=== PATIENT | female | born 1955 | race African-American/Black ===

== ENCOUNTER 2018-09-02 11:23 | Inpatient (IN) | payer OTHER ==
[~2018-09-02] VITALS: Ht 167.6 cm; Wt 51.3 kg
[2018-09-02] MEDS ORDERED: Ipratropium 0.02% Inh Soln 2.5ml UD HHN ONE (11:45)
[2018-09-02] MEDS ORDERED: Albuterol ud Inhalation HHN ONE (11:45)
[2018-09-02] MEDS ORDERED: Morphine Sulfate 4mg/ml Inj (IV/IM USE ONLY) IVP ONE (11:45)
--- NOTE | 2018-09-02 12:04 | NUR ---
ED Nurse Note: CN attemtpting to gain IV access and blood for labs
[2018-09-02 12:26] LABS: HEMATOCRIT 37.8 % (37.0-47.0); HEMOGLOBIN 12.3 G/DL (12.0-16.0); MEAN CORPUSCULAR VOLUME 93 FL (80-99); PLATELET COUNT 415 K/UL (150-450); RED BLOOD COUNT 4.07 M/UL (4.20-5.40); RED CELL DISTRIBUTION WIDTH 18.4 % (11.6-14.8)
[2018-09-02 12:29] LABS: WHITE BLOOD COUNT 34.8 K/UL (4.8-10.8)
--- NOTE | 2018-09-02 12:42 | NUR ---
ED Nurse Note: unable to collect urine at this time, per patient, she is so dehydrated to produce urine. pt receiving bolus, will try later. daughter at bedside
[2018-09-02] MEDS ORDERED: Isovue-370 150ml vial INJ PRN (13:00)
[2018-09-02] MEDS ORDERED: Piperacillin/Tazobactam 3.375 GM in NS 110 ML IVPB ONE (13:00)
[2018-09-02 13:22] LABS: ANION GAP 17 mmol/L (5-15); BLOOD UREA NITROGEN 18 mg/dL (7-18); CARBON DIOXIDE 23 MMOL/L (21-32); CHLORIDE 95 MMOL/L (98-107); CREATININE 1.5 MG/DL (0.55-1.30); POTASSIUM 4.6 MMOL/L (3.5-5.1); SODIUM 135 MMOL/L (136-145)
[2018-09-02 13:32] LABS: ALANINE AMINOTRANSFERASE 20 U/L (12-78); ALBUMIN 3.7 G/DL (3.4-5.0); ALBUMIN/GLOBULIN RATIO 0.6 (1.0-2.7); ALKALINE PHOSPHATASE 101 U/L (46-116); ASPARTATE AMINO TRANSFERASE 25 U/L (15-37); CREATINE KINASE 78 U/L (26-308)
[2018-09-02 14:07] VITALS: BP 154/88
--- NOTE | 2018-09-02 14:10 | NUR ---
ED Nurse Note: patient signed consent form the ct chest w/ contrast patient verbalized understanding, daughter at bedside
--- NOTE | 2018-09-02 14:18 | NUR ---
ED Nurse Note: patient went down to ct chest
--- NOTE | 2018-09-02 14:22 | Emergency Room Report ---
History of Present Illness General Chief Complaint: Chest Pain Source: Patient Present Illness HPI Patient presents with shortness of breath and chest pain which has been worsening over the last 2-3 days. She also feels weak. People around her are ill at this time. She's also receiving chemotherapy for lung cancer. Pain rated 9/10, pressure and somewhat pleuritic. Denies fever or chills. Recent weight loss with poor appetite. She has generalized weakness. No NVD, dysuria, abdominal pain, calf pain, edema, headache, rashes. Denies depression to me, though sad at of Jade. Apparently the cancer involves her R lung. Allergies: Coded Allergies: No Known Allergies (Unverified , 09/02/18) Patient History Past Medical History: see triage record Past Surgical History: hysterectomy Social History: Denies: smoking - prior, drug use - prior Social History Narrative at home with daughter - Jade Now: No : 3 Para: 3 Reviewed Nursing Documentation: PMH: Agreed; PSxH: Agreed Nursing Documentation-PMH Hx Cancer: Yes - Right lung Review of Systems All Other Systems: negative except mentioned in HPI Physical Exam Vital Signs Date Time Temp Pulse Resp B/P (MAP) Pulse Ox O2 Delivery O2 Flow Rate FiO2 09/02/18 11:34 98.6 154 34 154/88 92 Room Air 09/02/18 11:46 21 09/02/18 14:07 4.0 Sp02 EP Interpretation: reviewed, abnormal - interpreted as low by me General Appearance: no apparent distress, alert, GCS 15, thin, Chronically Ill Eyes: bilateral eye PERRL, bilateral eye conjunctivae pale ENT: moist mucus membranes Neck: supple Respiratory: decreased breath sounds, rales - L Cardiovascular #1: tachycardia Cardiovascular #2: 2+ radial (L) Gastrointestinal: normal inspection, non tender, decreased bowel sounds Genitourinary: no CVA tenderness Neurologic: alert, oriented x3, motor strength/tone normal, grossly normal Psychiatric: mood/affect normal Skin: normal color, no rash Medical Decision Making Diagnostic Impression: Primary Impression: Sepsis Qualified Codes: A41.9 - Sepsis, unspecified organism Additional Impressions: Pneumonia Qualified Codes: J18.1 - Lobar pneumonia, unspecified organism Lung cancer Qualified Codes: C34.91 - Malignant neoplasm of unspecified part of right bronchus or lung ER Course Patient with history of lung cancer presents with dyspnea and chest pain. Differential includes acute myocardial infarction, pulmonary embolus, pneumonia , pneumothorax, metastasis amongst others. She's fairly ill with tachycardia and hypoxia. Evaluation will be with EKG, chest x-ray, CT angiogram and labs. These will include blood cultures and lactate. The patient will receive IV hydration and even though she is afebrile at this time most likely will need antibiotics. In addition she'll be treated for pain. EKG with ST and pulm pattern. CXR with LLL infiltrate. WBC elevated. Lactic acid elevated. Mild renal insufficiency. Influenza negative. Still tachycardic after bolus. Pain greatly improved. No PE. Repeat bolus and antibiotics infusing. Sepsis re-evaluation: Capillary fill good, not hypotensive, mentation good. Lactic acid improving. Discussed with Dr. Escoto and admit telemetry. Laboratory Tests Test 09/02/18 12:00 09/02/18 12:15 09/02/18 15:40 09/02/18 16:00 White Blood Count 34.8 K/UL (4.8-10.8) *H Red Blood Count 4.07 M/UL (4.20-5.40) L Hemoglobin 12.3 G/DL (12.0-16.0) Hematocrit 37.8 % (37.0-47.0) Mean Corpuscular Volume 93 FL (80-99) Mean Corpuscular Hemoglobin 30.2 PG (27.0-31.0) Mean Corpuscular Hemoglobin Concent 32.5 G/DL (32.0-36.0) Red Cell Distribution Width 18.4 % (11.6-14.8) H Platelet Count 415 K/UL (150-450) Mean Platelet Volume 5.5 FL (6.5-10.1) L Neutrophils (%) (Auto) % (45.0-75.0) Lymphocytes (%) (Auto) % (20.0-45.0) Monocytes (%) (Auto) % (1.0-10.0) Eosinophils (%) (Auto) % (0.0-3.0) Basophils (%) (Auto) % (0.0-2.0) Differential Total Cells Counted 100 Neutrophils % (Manual) 90 % (45-75) H Lymphocytes % (Manual) 2 % (20-45) L Monocytes % (Manual) 2 % (1-10) Eosinophils % (Manual) 0 % (0-3) Basophils % (Manual) 0 % (0-2) Band Neutrophils 6 % (0-8) Platelet Estimate Adequate Platelet Morphology Normal Anisocytosis 1+ Prothrombin Time 10.8 SEC (9.30-11.50) Prothrombin Time INR 1.0 (0.9-1.1) PTT 33 SEC (23-33) Sodium Level 135 MMOL/L (136-145) L Potassium Level 4.6 MMOL/L (3.5-5.1) Chloride Level 95 MMOL/L (98-107) L Carbon Dioxide Level 23 MMOL/L (21-32) Anion Gap 17 mmol/L (5-15) H Blood Urea Nitrogen 18 mg/dL (7-18) Creatinine 1.5 MG/DL (0.55-1.30) H Estimate Glomerular Filtration Rate 42.5 mL/min (>60) Glucose Level 131 MG/DL (74-106) H Calcium Level 11.0 MG/DL (8.5-10.1) H Total Bilirubin 1.0 MG/DL (0.2-1.0) Aspartate Amino Transferase (AST) 25 U/L (15-37) Alanine Aminotransferase (ALT) 20 U/L (12-78) Alkaline Phosphatase 101 U/L (46-116) Total Creatine Kinase 78 U/L (26-308) Troponin I 0.000 ng/mL (0.000-0.056) Pro-B-Type Natriuretic Peptide 1718 pg/mL (0-125) H Total Protein 10.2 G/DL (6.4-8.2) H Albumin 3.7 G/DL (3.4-5.0) Globulin 6.5 g/dL Albumin/Globulin Ratio 0.6 (1.0-2.7) L Lactic Acid Level 3.40 mmol/L (0.4-2.0) H 2.60 mmol/L (0.66-2.22) H Urine Color Yellow Urine Appearance Slightly cloudy Urine pH 5 (4.5-8.0) Urine Specific [place] 1.010 (1.005-1.035) Urine Protein 3+ (NEGATIVE) H Urine Glucose (UA) Negative (NEGATIVE) Urine Ketones 1+ (NEGATIVE) H Urine Blood 2+ (NEGATIVE) H Urine Nitrite Negative (NEGATIVE) Urine Bilirubin Negative (NEGATIVE) Urine Urobilinogen Normal MG/DL (0.0-1.0) Urine Leukocyte Esterase Negative (NEGATIVE) Urine RBC 2-4 /HPF (0 - 2) H Urine WBC 0 /HPF (0 - 2) Urine Squamous Epithelial Cells Few /LPF (NONE/OCC) Urine Amorphous Sediment Few /LPF (NONE) H Urine Bacteria Few /HPF (NONE) Test 09/02/18 22:00 Urine Legionella Antigen Pending Microbiology Date/Time Source Procedure Growth Status 09/02/18 11:58 Nasal Nares Influenza Types A,B Antigen (ANTHONY) - Final Complete EKG Diagnostic Results Rate: tachycardiac ST Segments: no acute changes - NSSTTW changes Rhythm Strip Diag. Results EP Interpretation: yes Rhythm: no PVC's, no ectopy Chest X-Ray Diagnostic Results Chest X-Ray Diagnostic Results : Chest X-Ray Ordered: Yes # of Views/Limited/Complete: 1 View Indication: Other EP Interpretation: Yes Interpretation: no pneumothorax, other - mass R upper lobe, LLL with infiltrate and effusion Impression: Other Electronically Signed by: Electronically signed by Harsha Bradford MD CT/MRI/US Diagnostic Results CT/MRI/US Diagnostic Results : Imaging Test Ordered: CTA chest Impression No pulmonary embolus or aortic dissection. Completely consolidated lingular segments of the left upper lobe suggesting pneumonia severe emphysema 5 x 3.1 cm calcified anterior mediastinal mass in similar thymoma or teratoma or treated lymphoma. Bronchogenic malignancy is felt to be less likely. Nodular right apical density with calcium felt to be scarring or else granulomatous disease. Mild thyromegaly. Multiple hypodense nodules largest in the right lobe measuring 1.8 cm Last Vital Signs Date Time Temp Pulse Resp B/P (MAP) Pulse Ox O2 Delivery O2 Flow Rate FiO2 09/02/18 20:00 130 20 99 Nasal Cannula 4.0 36 09/02/18 16:34 98.6 154/88 Status: improved Disposition: ADMITTED INPATIENT Condition: Serious Referrals: Kole DUNN,REFERRING (PCP) Harsha Bradford MD Sep 02, 2018 14:22
--- NOTE | 2018-09-02 15:00 | NUR ---
ED Nurse Note: atttemtped to get lactic acid reflex, unsuccessful
--- NOTE | 2018-09-02 15:25 | NUR ---
ED Nurse Note: called and spoke with [employer]orer [employer] to draw lactic acid reflex
--- NOTE | 2018-09-02 15:43 | NUR ---
ED Nurse Note: provided bedside commode for patient to collect u/a lactic acid drawn by director of cardiac cath lab
--- NOTE | 2018-09-02 16:00 | NUR ---
ED Nurse Note: urine obtained and sent down
[2018-09-02 16:18] LABS: APPEARANCE,URINE SLIGHTLY CLOUDY; BILIRUBIN, URINE NEGATIVE (NEGATIVE); GLUCOSE, URINE (UA) NEGATIVE (NEGATIVE); KETONES,URINE 1+ (NEGATIVE); LEUKOCYTE ESTERASE ,URINE NEGATIVE (NEGATIVE); NITRITE,URINE NEGATIVE (NEGATIVE); PH,URINE 5 (4.5-8.0); PROTEIN,URINE 3+ (NEGATIVE); UROBILINOGEN,URINE NORMAL MG/DL (0.0-1.0)
[2018-09-02 16:21] LABS: COLOR,URINE YELLOW
--- NOTE | 2018-09-02 16:25 | NUR ---
NURSE NOTES: Received patient from NALDO Yeh. Pt is short of breath on exertion and at rest. 4L via NC is currently being administered. Belongings list signed and in chart. Heart monitor applied to patient. Bed is in lowest position, side rails up X2, and call light is within reach. Will continue to monitor.
--- NOTE | 2018-09-02 16:27 | NUR ---
ED Nurse Note: patient transferred to ED 221-1 with all of her belongings. Endorsed that she needs 19 more minutes of levaquin to RN., report given to Corrina HITCHCOCK .
--- NOTE | 2018-09-02 17:49 | NUR ---
CASE MANAGEMENT: INITIAL REVIEW 09/02/2018 63 YO F PRESENTED TO OUR ED FROM HOME CC: CP PMHx: LUNG CA. SI:HYPOXIA T 98.6 HR 154 RR 34 B/P 154/88 SATS 92% ON RA WBC 34.8 NA 135 CL 95 CR 1.5 GLU 131 LACTIC ACID 3.4 CA 11 BNP 1718 IS: DUO NEB HHN X1 NS BOLUS X1 MORPHINE IV X1 ZOFRAN IV X1 NS BOLUS X1 PATIENT ADMITTED TO TELE 09/02/2018 @ 1413 DCP: PATIENT TO BE DISCHARGED TO HOME ONCE MEDICALLY CLEARED.
[2018-09-02] MEDS ORDERED: D5NS 1,000 ML IV SCH (18:00)
--- NOTE | 2018-09-02 19:15 | NUR ---
NURSE NOTES: Pt is voicing her concern about not receiving abx. Spoke to Dr. Davis who told me to contact Dr. Leatha Ahn. Left message with Dr. Ahn; awaiting response.
--- NOTE | 2018-09-02 19:30 | NUR ---
HAND-OFF: Report given to NALDO Tomlin. Plan of care endorsed.
--- NOTE | 2018-09-02 19:33 | NUR ---
NURSE NOTES: Report received from NALDO Jacome. Pt is lying comfortably in bed in semi-fowlers position with no signs of distress. Pt is A+Ox4 and denies pain/SOB. IV site is patent, intact, and running fluids at prescribed rate. Respirations are even and unlabored on 4 L NC. Bed is at lowest position, brakes engaged, siderailsx2, bed alarm on, and call light within reach. Pt is in stable condition at this time; will continue to monitor.
[2018-09-02] MEDS: Albuterol/Ipratropium 3ml neb HHN PRN (19:52)
[2018-09-02 20:00] VITALS: BP 123/74
--- NOTE | 2018-09-02 21:00 | History and Physical Report ---
DATE OF ADMISSION: 09/02/2018 HISTORY OF PRESENT ILLNESS: The patient came in with symptoms of chest pain made worse by deep inspiration for the past two days. The patient complains of shortness of breath, wheezing, and nonproductive cough for three days. The patient has a history of lung cancer diagnosed in April 2018, just finished her chemotherapy and radiation recently. The patient is being admitted for sepsis, pneumonia, leukocytosis, tachycardia, severe dehydration, and hypercalcemia. PAST MEDICAL HISTORY: Gastroesophageal reflux disease, lung cancer, and history of ovarian cancer versus benign. MEDICATIONS: The patient takes something for heartburn. ALLERGIES: None. SOCIAL HISTORY: The patient has history of smoking and history of drug abuse. No history of alcohol abuse. FAMILY HISTORY: Does have history of hypertension. REVIEW OF SYSTEMS: HEENT: headache. RESPIRATORY: Reports shortness of breath, wheezing, and nonproductive cough for three days. CARDIOVASCULAR: Reports chest pain made worse by deep inspiration for the past three days. Denies orthopnea. ABDOMEN: Denies abdominal pain. She has heartburn. EXTREMITIES: Denies pain in the lower extremities. CENTRAL NERVOUS SYSTEM: Denies changes in speech pattern. PHYSICAL EXAMINATION: VITAL SIGNS: Blood pressure 133/70 and heart rate is 110. HEENT: PERRLA. NECK: Supple. No lymphadenopathy. CHEST: Clear to auscultation. CARDIOVASCULAR: Tachycardic. GASTROINTESTINAL: Soft and nontender. No organomegaly. EXTREMITIES: No edema. Moves all four extremities. NEUROLOGIC: Sensory intact to light touch. Reflexes equal on both sides. LABORATORY DATA: WBC of 34,000. Calcium of 11. ASSESSMENT AND PLAN: Severe dehydration and hypercalcemia, could be due to cancer as well as most likely dehydration, sepsis, pneumonia most likely and lung cancer. I have asked Dr. Lovell, Dr. Grover, Dr. Momin, Dr. Keron Ahn, Dr. Lane to see the patient sepsis and pneumonia, dehydration, hypercalcemia, and recent lung cancer diagnosis. Monse Davis M.D. DR: ORION JOB#: [id number] CC:
[2018-09-02] MEDS: Piperacillin/Tazobactam 3.375 GM in NS 110 ML IVPB SCH (22:49)
--- NOTE | 2018-09-02 23:13 | NUR ---
NURSE NOTES: Left multiple messages with Dr. Davis regarding pt's chest pain. Dr. Davis said to contact deburrer, however there is no deburrer on the case. Let him know and awaiting response.
--- NOTE | 2018-09-02 23:18 | NUR ---
NURSE NOTES: Spoke with Dr. Davis who ordered morphine IVP. Left message with Dr. Fernandes regarding chest pain; awaiting response.
[2018-09-02] MEDS ORDERED: Morphine Sulfate 4mg/ml Inj (IV/IM USE ONLY) IVP PRN (23:45)
[2018-09-03] VITALS: BP 111/73
[2018-09-03 04:02] VITALS: BP 100/66
[2018-09-03] MEDS: Piperacillin/Tazobactam 3.375 GM in NS 110 ML IVPB SCH ×3 (06:30→21:49)
--- NOTE | 2018-09-03 07:10 | NUR ---
NURSE NOTES: I received the patient resting in bed. Patient alert and oriented x4. Patient verbalized that she was going to leave today. Patient does not display any signs of distress or SOB. Bed in the lowest position and call light within reach. I will continue to monitor the patient and implement care.
--- NOTE | 2018-09-03 07:32 | NUR ---
HAND-OFF: Report given to NALDO Villasenor. Pt is in stable condition; plan of care endorsed.
[2018-09-03 08:00] VITALS: BP 112/63
--- NOTE | 2018-09-03 08:42 | Diagnostic Imaging Report ---
Indication: Dyspnea Technique: One view of the chest Comparison: none Findings: Patient is rotated slightly to the right. Right paratracheal mass or adenopathy is demonstrated. There is opacification of the left lower hemithorax by a dense consolidation or mass. The pleural spaces are clear. The right lung is clear. There is some bullous emphysema in the left apex. Impression: Right paratracheal mass versus adenopathy. Number electronic medical record, patient has history of lung carcinoma so likely related to such Infiltrate in the left mid and lower lung. Recommend follow-up to resolution to exclude underlying mass lesion Evidence of bullous emphysema
[2018-09-03] MEDS: Docusate 100mg cap ORAL SCH ×4 (09:00→17:55)
--- NOTE | 2018-09-03 09:42 | Diagnostic Imaging Report ---
ndication: Chest pain for 3 days Technique: IV administration nonionic contrast. Spiral acquisitions obtained from the lung bases to the lung apices. Multiplanar and 3-D reconstructions were generated. Total dose length product 510.98 mGycm. CTDIvol(s) 15.93 mGy. Dose reduction achieved using automated exposure control Comparison: Chest radiograph earlier the same day Findings: No intraluminal filling defects or other findings to suggest acute pulmonary embolus demonstrated. Normal caliber pulmonary arteries. No evidence of thoracic aortic aneurysm or dissection. No evidence of right ventricular dilatation. There is a mass or conglomerate of masses in the right upper anterior mediastinum. There is some associated calcification. This measures approximately 3.2 cm transverse by 3.9 cm AP by 7 cm craniocaudad. This narrows the left innominate vein. There is dense consolidation of the inferior left upper lobe, and areas of honeycombing cephalad to the area of consolidation. There is bilateral bullous change. Some scarring is seen in the right lung apex with confluent opacities. The heart size is normal. There is trace anterior wall pericardial fluid versus thickening. No other mediastinal mass or adenopathy demonstrated other than that described above. The included thyroid is enlarged, demonstrates multiple nodules. No axillary or chest wall mass or adenopathy. The bones are unremarkable. The included upper abdomen is unremarkable. Impression: 3.2 x 3.9 x 7 cm right paratracheal mass or adenopathy, versus conglomerate of masses. Differential considerations include metastatic disease, thymoma, teratoma, treated lymphoma. As this appears to be mediastinal rather than parenchymal, bronchogenic carcinoma deemed less likely Dense consolidation of most of the left upper lobe consistent with pneumonia. Areas of honeycombing more cephalad may reflect reticular infiltrate or could indicate an area of chronic fibrosis Extensive COPD changes Right apical scarring Enlarged thyroid with multiple nodules. Further workup should be based on comorbidities mentioned above This agrees with the preliminary interpretation provided overnight by [place] [facility] service. The CT scanner at [facility] is accredited by the [employer] and the scans are performed using protocols designed to limit radiation exposure to as low as reasonably achievable to attain images of sufficient resolution adequate for diagnostic evaluation.
--- NOTE | 2018-09-03 09:49 | Consultation ---
History of Present Illness General Date patient seen: Sep 03, 2018 Chief Complaint: Present Illness Allergies: Coded Allergies: No Known Allergies (Unverified , 09/02/18) Patient History Healthcare decision maker N Resuscitation status Full Code Advanced Directive on File Physical Exam Last 24 Hour Vital Signs Date Time Temp Pulse Resp B/P (MAP) Pulse Ox O2 Delivery O2 Flow Rate FiO2 09/03/18 08:00 96.7 114 18 112/63 (79) 98 09/03/18 07:54 115 18 Nasal Cannula 4.0 36 09/03/18 07:23 114 09/03/18 04:02 97.9 112 18 100/66 (77) 98 09/03/18 04:00 110 09/03/18 00:00 98.2 125 18 111/73 (86) 97 09/03/18 00:00 122 09/02/18 21:00 Nasal Cannula 4.0 09/02/18 20:00 130 20 99 Nasal Cannula 4.0 36 09/02/18 20:00 98.7 130 19 123/74 (90) 96 09/02/18 20:00 139 09/02/18 19:50 21 09/02/18 19:50 135 25 94 Nasal Cannula 4.0 36 09/02/18 17:02 Nasal Cannula 4.0 09/02/18 16:34 98.6 154 26 154/88 99 Nasal Cannula 4.0 21 09/02/18 15:42 143 26 Nasal Cannula 4.0 21 09/02/18 14:07 98.6 154 28 154/88 99 Nasal Cannula 4.0 09/02/18 12:53 98.6 09/02/18 12:05 136 28 99 Room Air 21 09/02/18 11:46 130 25 92 Room Air 21 09/02/18 11:46 21 09/02/18 11:46 130 25 Room Air 21 09/02/18 11:34 98.6 154 34 154/88 92 Room Air Intake and Output 09/02/18 09/03/18 18:59 06:59 # Voids 1 Laboratory Tests Test 09/02/18 12:00 09/02/18 12:15 09/02/18 15:40 09/02/18 16:00 White Blood Count 34.8 K/UL (4.8-10.8) *H Red Blood Count 4.07 M/UL (4.20-5.40) L Hemoglobin 12.3 G/DL (12.0-16.0) Hematocrit 37.8 % (37.0-47.0) Mean Corpuscular Volume 93 FL (80-99) Mean Corpuscular Hemoglobin 30.2 PG (27.0-31.0) Mean Corpuscular Hemoglobin Concent 32.5 G/DL (32.0-36.0) Red Cell Distribution Width 18.4 % (11.6-14.8) H Platelet Count 415 K/UL (150-450) Mean Platelet Volume 5.5 FL (6.5-10.1) L Neutrophils (%) (Auto) % (45.0-75.0) Lymphocytes (%) (Auto) % (20.0-45.0) Monocytes (%) (Auto) % (1.0-10.0) Eosinophils (%) (Auto) % (0.0-3.0) Basophils (%) (Auto) % (0.0-2.0) Differential Total Cells Counted 100 Neutrophils % (Manual) 90 % (45-75) H Lymphocytes % (Manual) 2 % (20-45) L Monocytes % (Manual) 2 % (1-10) Eosinophils % (Manual) 0 % (0-3) Basophils % (Manual) 0 % (0-2) Band Neutrophils 6 % (0-8) Platelet Estimate Adequate Platelet Morphology Normal Anisocytosis 1+ Prothrombin Time 10.8 SEC (9.30-11.50) Prothromb Time International Ratio 1.0 (0.9-1.1) Activated Partial Thromboplast Time 33 SEC (23-33) Sodium Level 135 MMOL/L (136-145) L Potassium Level 4.6 MMOL/L (3.5-5.1) Chloride Level 95 MMOL/L (98-107) L Carbon Dioxide Level 23 MMOL/L (21-32) Anion Gap 17 mmol/L (5-15) H Blood Urea Nitrogen 18 mg/dL (7-18) Creatinine 1.5 MG/DL (0.55-1.30) H Estimat Glomerular Filtration Rate 42.5 mL/min (>60) Glucose Level 131 MG/DL (74-106) H Calcium Level 11.0 MG/DL (8.5-10.1) H Total Bilirubin 1.0 MG/DL (0.2-1.0) Aspartate Amino Transf (AST/SGOT) 25 U/L (15-37) Alanine Aminotransferase (ALT/SGPT) 20 U/L (12-78) Alkaline Phosphatase 101 U/L (46-116) Total Creatine Kinase 78 U/L (26-308) Troponin I 0.000 ng/mL (0.000-0.056) Pro-B-Type Natriuretic Peptide 1718 pg/mL (0-125) H Total Protein 10.2 G/DL (6.4-8.2) H Albumin 3.7 G/DL (3.4-5.0) Globulin 6.5 g/dL Albumin/Globulin Ratio 0.6 (1.0-2.7) L Lactic Acid Level 3.40 mmol/L (0.4-2.0) H 2.60 mmol/L (0.66-2.22) H Urine Color Yellow Urine Appearance Slightly cloudy Urine pH 5 (4.5-8.0) Urine Specific [place] 1.010 (1.005-1.035) Urine Protein 3+ (NEGATIVE) H Urine Glucose (UA) Negative (NEGATIVE) Urine Ketones 1+ (NEGATIVE) H Urine Blood 2+ (NEGATIVE) H Urine Nitrite Negative (NEGATIVE) Urine Bilirubin Negative (NEGATIVE) Urine Urobilinogen Normal MG/DL (0.0-1.0) Urine Leukocyte Esterase Negative (NEGATIVE) Urine RBC 2-4 /HPF (0 - 2) H Urine WBC 0 /HPF (0 - 2) Urine Squamous Epithelial Cells Few /LPF (NONE/OCC) Urine Amorphous Sediment Few /LPF (NONE) H Urine Bacteria Few /HPF (NONE) Test 09/02/18 22:00 Urine Legionella Antigen Pending Microbiology Date/Time Source Procedure Growth Status 09/02/18 11:58 Nasal Nares Influenza Types A,B Antigen (ANTHONY) - Final Complete Height (Feet): 5 Height (Inches): 6.00 Weight (Pounds): 113 Medications Current Medications Medications (Trade) Dose Ordered Sig/Gordo Route PRN Reason Start Time Stop Time Status Last Admin Dose Admin Acetaminophen (Tylenol) 650 mg Q4H PRN ORAL Mild Pain/Temp > 100.5 09/02/18 18:00 10/02/18 17:59 09/02/18 22:48 Albuterol/ Ipratropium (Albuterol/ Ipratropium) 3 ml Q4H PRN HHN Shortness of Breath 09/02/18 18:00 09/07/18 17:59 09/02/18 19:52 Dextrose/Sodium Chloride 1,000 ml @ 50 mls/hr Q20H IV 09/02/18 18:00 10/02/18 17:59 09/02/18 18:25 Docusate Sodium (Colace) 100 mg THREE TIMES A DAY ORAL 09/03/18 09:00 10/03/18 08:59 Iopamidol (Isovue-370 150ml) 150 ml NOW PRN INJ Radiology Procedure 09/02/18 13:00 09/04/18 12:52 Levofloxacin (Levaquin) 250 mg DAILY ORAL 09/03/18 09:00 09/10/18 08:59 Morphine Sulfate (Morphine Sulfate) 2 mg Q4H PRN IVP pain 09/02/18 23:45 09/09/18 23:44 09/02/18 23:43 Ondansetron HCl (Zofran) 4 mg Q6H PRN IVP Nausea & Vomiting 09/02/18 18:15 10/02/18 18:14 Piperacillin Sod/ Tazobactam Sod 3.375 gm/Sodium Chloride 110 ml @ 27.5 mls/hr EVERY 8 HOURS IVPB 09/02/18 22:00 09/07/18 21:59 09/03/18 06:30 Assessment/Plan Assessment/Plan (1) Lung Cancer (2) Intractable pain seen dictated. Zaki Do Sep 03, 2018 09:49
--- NOTE | 2018-09-03 09:59 | NUR ---
NURSE NOTES: Patient refused morning labs and 2D echo. made aware. Patient educated about her infection and treatment plan. Patient states that if the doctor does not come to see her by 1200 she is going to leave. Dr. Escoto made aware. Patient resting in bed. Bed in the lowest position and call light within reach.
--- NOTE | 2018-09-03 10:31 | NUR ---
NO INSURANCE INFORMATION IN THE BAR TO SEND CLINICALS OR REVIEWS
--- NOTE | 2018-09-03 10:33 | Pulmonology Progress Note ---
Assessment/Plan Assessment/Plan Pulmonary Consultation Note Chief Complaint: Chest Pain HPI Patient with a history of right sided Lung Cancer note on recent CT chest, presents with shortness of breath and chest pain which has been worsening over the last 2-3 days. She also feels weak. People around her are ill at this time. She's also receiving chemotherapy for lung cancer. Pain rated 9/10, pressure and somewhat pleuritic. Denies fever or chills. Recent weight loss with poor appetite. She has generalized weakness. Noted to have left sided pneumonia on CXR and CT chest, no evidence of pE. No NVD, dysuria, abdominal pain, calf pain, edema, headache, rashes. Denies depression to me, though sad at of Jade. Allergies: No Known Allergies Past Surgical History: hysterectomy Social History: Denies: current smoking - prior, drug use - prior S All Other Systems: negative except mentioned in HPI Physical Exam Vital Signs Noted Date Time Temp Pulse Resp B/P (MAP) Pulse Ox O2 Delivery O2 Flow Rate FiO2 09/02/18 11:34 98.6 154 34 154/88 92 Room Air 09/02/18 11:46 21 09/02/18 14:07 4.0 General Appearance: no apparent distress, alert, GCS 15, thin, Chronically Ill Eyes: bilateral eye PERRL, bilateral eye conjunctivae pale ENT: moist mucus membranes Neck: supple Respiratory: decreased breath sounds, rales - L Cardiovascular #1: tachycardia Cardiovascular #2: 2+ radial (L) Gastrointestinal: normal inspection, non tender, decreased bowel sounds Genitourinary: no CVA tenderness Neurologic: alert, oriented x3, motor strength/tone normal, grossly normal Psychiatric: mood/affect normal Skin: normal color, no rash Impression: Pneumonia CORETTA/Sepsis Dehydration Hypercalcemia Right Hilar Lung cancer Plan IV Antibiotics O2 PRN Rehydration Pain management following HHN Laboratory Tests Test 09/02/18 12:00 09/02/18 12:15 09/02/18 15:40 09/02/18 16:00 White Blood Count 34.8 K/UL (4.8-10.8) *H Red Blood Count 4.07 M/UL (4.20-5.40) L Hemoglobin 12.3 G/DL (12.0-16.0) Hematocrit 37.8 % (37.0-47.0) Mean Corpuscular Volume 93 FL (80-99) Mean Corpuscular Hemoglobin 30.2 PG (27.0-31.0) Mean Corpuscular Hemoglobin Concent 32.5 G/DL (32.0-36.0) Red Cell Distribution Width 18.4 % (11.6-14.8) H Platelet Count 415 K/UL (150-450) Mean Platelet Volume 5.5 FL (6.5-10.1) L Neutrophils (%) (Auto) % (45.0-75.0) Lymphocytes (%) (Auto) % (20.0-45.0) Monocytes (%) (Auto) % (1.0-10.0) Eosinophils (%) (Auto) % (0.0-3.0) Basophils (%) (Auto) % (0.0-2.0) Differential Total Cells Counted 100 Neutrophils % (Manual) 90 % (45-75) H Lymphocytes % (Manual) 2 % (20-45) L Monocytes % (Manual) 2 % (1-10) Eosinophils % (Manual) 0 % (0-3) Basophils % (Manual) 0 % (0-2) Band Neutrophils 6 % (0-8) Platelet Estimate Adequate Platelet Morphology Normal Anisocytosis 1+ Prothrombin Time 10.8 SEC (9.30-11.50) Prothrombin Time INR 1.0 (0.9-1.1) PTT 33 SEC (23-33) Sodium Level 135 MMOL/L (136-145) L Potassium Level 4.6 MMOL/L (3.5-5.1) Chloride Level 95 MMOL/L (98-107) L Carbon Dioxide Level 23 MMOL/L (21-32) Anion Gap 17 mmol/L (5-15) H Blood Urea Nitrogen 18 mg/dL (7-18) Creatinine 1.5 MG/DL (0.55-1.30) H Estimate Glomerular Filtration Rate 42.5 mL/min (>60) Glucose Level 131 MG/DL (74-106) H Calcium Level 11.0 MG/DL (8.5-10.1) H Total Bilirubin 1.0 MG/DL (0.2-1.0) Aspartate Amino Transferase (AST) 25 U/L (15-37) Alanine Aminotransferase (ALT) 20 U/L (12-78) Alkaline Phosphatase 101 U/L (46-116) Total Creatine Kinase 78 U/L (26-308) Troponin I 0.000 ng/mL (0.000-0.056) Pro-B-Type Natriuretic Peptide 1718 pg/mL (0-125) H Total Protein 10.2 G/DL (6.4-8.2) H Albumin 3.7 G/DL (3.4-5.0) Globulin 6.5 g/dL Albumin/Globulin Ratio 0.6 (1.0-2.7) L Lactic Acid Level 3.40 mmol/L (0.4-2.0) H 2.60 mmol/L (0.66-2.22) H Urine Color Yellow Urine Appearance Slightly cloudy Urine pH 5 (4.5-8.0) Urine Specific [place] 1.010 (1.005-1.035) Urine Protein 3+ (NEGATIVE) H Urine Glucose (UA) Negative (NEGATIVE) Urine Ketones 1+ (NEGATIVE) H Urine Blood 2+ (NEGATIVE) H Urine Nitrite Negative (NEGATIVE) Urine Bilirubin Negative (NEGATIVE) Urine Urobilinogen Normal MG/DL (0.0-1.0) Urine Leukocyte Esterase Negative (NEGATIVE) Urine RBC 2-4 /HPF (0 - 2) H Urine WBC 0 /HPF (0 - 2) Urine Squamous Epithelial Cells Few /LPF (NONE/OCC) Urine Amorphous Sediment Few /LPF (NONE) H Urine Bacteria Few /HPF (NONE) Test 09/02/18 22:00 Urine Legionella Antigen Pending Microbiology Date/Time Source Procedure Growth Status 09/02/18 11:58 Nasal Nares Influenza Types A,B Antigen (ANTHONY) - Final Complete EKG Diagnostic Results Rate: tachycardiac ST Segments: no acute changes - NSSTTW changes Rhythm Strip Diag. Results EP Interpretation: yes Rhythm: no PVC's, no ectopy Chest X-Ray Diagnostic Results Chest X-Ray Diagnostic Results : Chest X-Ray Ordered: Yes # of Views/Limited/Complete: 1 View Indication: Other EP Interpretation: Yes Interpretation: no pneumothorax, other - mass R upper lobe, LLL with infiltrate and effusion Impression: Other Electronically Signed by: Electronically signed by Harsha Bradford MD CT/MRI/US Diagnostic Results CT/MRI/US Diagnostic Results : Imaging Test Ordered: CTA chest Impression No pulmonary embolus or aortic dissection. Completely consolidated lingular segments of the left upper lobe suggesting pneumonia severe emphysema 5 x 3.1 cm calcified anterior mediastinal mass in similar thymoma or teratoma or treated lymphoma. Bronchogenic malignancy is felt to be less likely. Nodular right apical density with calcium felt to be scarring or else granulomatous disease. Mild thyromegaly. Multiple hypodense nodules largest in the right lobe measuring 1.[address] and pulm pattern. CXR with LLL infiltrate. WBC elevated. Lactic acid elevated. Mild renal insufficiency. Influenza negative Subjective ROS Limited/Unobtainable: No Respiratory: Reports: pleuritic pain Allergies: Coded Allergies: No Known Allergies (Unverified , 09/02/18) Objective Last 24 Hour Vital Signs Date Time Temp Pulse Resp B/P (MAP) Pulse Ox O2 Delivery O2 Flow Rate FiO2 09/03/18 09:00 Nasal Cannula 4.0 09/03/18 08:00 96.7 114 18 112/63 (79) 98 09/03/18 07:54 115 18 Nasal Cannula 4.0 36 09/03/18 07:23 114 09/03/18 04:02 97.9 112 18 100/66 (77) 98 09/03/18 04:00 110 09/03/18 00:00 98.2 125 18 111/73 (86) 97 09/03/18 00:00 122 09/02/18 21:00 Nasal Cannula 4.0 09/02/18 20:00 130 20 99 Nasal Cannula 4.0 36 09/02/18 20:00 98.7 130 19 123/74 (90) 96 09/02/18 20:00 139 09/02/18 19:50 21 09/02/18 19:50 135 25 94 Nasal Cannula 4.0 36 09/02/18 17:02 Nasal Cannula 4.0 09/02/18 16:34 98.6 154 26 154/88 99 Nasal Cannula 4.0 21 09/02/18 15:42 143 26 Nasal Cannula 4.0 21 09/02/18 14:07 98.6 154 28 154/88 99 Nasal Cannula 4.0 09/02/18 12:53 98.6 09/02/18 12:05 136 28 99 Room Air 21 09/02/18 11:46 130 25 92 Room Air 21 09/02/18 11:46 21 09/02/18 11:46 130 25 Room Air 21 09/02/18 11:34 98.6 154 34 154/88 92 Room Air Intake and Output 09/02/18 09/03/18 18:59 06:59 # Voids 1 Microbiology Date/Time Source Procedure Growth Status 09/02/18 11:58 Nasal Nares Influenza Types A,B Antigen (ANTHONY) - Final Complete Laboratory Tests 09/02/18 12:00: White Blood Count 34.8*H, Red Blood Count 4.07L, Hemoglobin 12.3, Hematocrit 37.8, Mean Corpuscular Volume 93, Mean Corpuscular Hemoglobin 30.2, Mean Corpuscular Hemoglobin Concent 32.5, Red Cell Distribution Width 18.4H, Platelet Count 415, Mean Platelet Volume 5.5L, Neutrophils (%) (Auto) , Lymphocytes (%) (Auto) , Monocytes (%) (Auto) , Eosinophils (%) (Auto) , Basophils (%) (Auto) , Differential Total Cells Counted 100, Neutrophils % ( Manual) 90H, Lymphocytes % (Manual) 2L, Monocytes % (Manual) 2, Eosinophils % ( Manual) 0, Basophils % (Manual) 0, Band Neutrophils 6, Platelet Estimate Adequate, Platelet Morphology Normal, Anisocytosis 1+, Prothrombin Time 10.8, Prothromb Time International Ratio 1.0, Activated Partial Thromboplast Time 33, Sodium Level 135L, Potassium Level 4.6, Chloride Level 95L, Carbon Dioxide Level 23, Anion Gap 17H, Blood Urea Nitrogen 18, Creatinine 1.5H, Estimat Glomerular Filtration Rate 42.5, Glucose Level 131H, Calcium Level 11.0H, Total Bilirubin 1.0, Aspartate Amino Transf (AST/SGOT) 25, Alanine Aminotransferase ( ALT/SGPT) 20, Alkaline Phosphatase 101, Total Creatine Kinase 78, Troponin I 0.000, Pro-B-Type Natriuretic Peptide 1718H, Total Protein 10.2H, Albumin 3.7, Globulin 6.5, Albumin/Globulin Ratio 0.6L 09/02/18 12:15: Lactic Acid Level 3.40H 09/02/18 15:40: Lactic Acid Level 2.60H 09/02/18 16:00: Urine Color Yellow, Urine Appearance Slightly cloudy, Urine pH 5, Urine Specific [place] 1.010, Urine Protein 3+H, Urine Glucose (UA) Negative, Urine Ketones 1+H, Urine Blood 2+H, Urine Nitrite Negative, Urine Bilirubin Negative, Urine Urobilinogen Normal, Urine Leukocyte Esterase Negative, Urine RBC 2-4H, Urine WBC 0, Urine Squamous Epithelial Cells Few, Urine Amorphous Sediment FewH , Urine Bacteria Few 09/02/18 22:00: Urine Legionella Antigen [Pending] Current Medications Medications (Trade) Dose Ordered Sig/Gordo Route PRN Reason Start Time Stop Time Status Last Admin Dose Admin Acetaminophen (Tylenol) 650 mg Q4H PRN ORAL Mild Pain/Temp > 100.5 09/02/18 18:00 10/02/18 17:59 09/02/18 22:48 Albuterol/ Ipratropium (Albuterol/ Ipratropium) 3 ml Q4H PRN HHN Shortness of Breath 09/02/18 18:00 09/07/18 17:59 09/02/18 19:52 Dextrose/Sodium Chloride 1,000 ml @ 50 mls/hr Q20H IV 09/02/18 18:00 10/02/18 17:59 09/02/18 18:25 Docusate Sodium (Colace) 100 mg THREE TIMES A DAY ORAL 09/03/18 09:00 10/03/18 08:59 Iopamidol (Isovue-370 150ml) 150 ml NOW PRN INJ Radiology Procedure 09/02/18 13:00 09/04/18 12:52 Levofloxacin (Levaquin) 250 mg DAILY ORAL 09/03/18 09:00 09/10/18 08:59 09/03/18 09:48 Morphine Sulfate (Morphine Sulfate) 2 mg Q4H PRN IVP pain 09/02/18 23:45 09/09/18 23:44 09/02/18 23:43 Ondansetron HCl (Zofran) 4 mg Q6H PRN IVP Nausea & Vomiting 09/02/18 18:15 10/02/18 18:14 Piperacillin Sod/ Tazobactam Sod 3.375 gm/Sodium Chloride 110 ml @ 27.5 mls/hr EVERY 8 HOURS IVPB 09/02/18 22:00 09/07/18 21:59 09/03/18 06:30 Harsha Roberson MD Sep 03, 2018 10:33
--- NOTE | 2018-09-03 11:23 | General Progress Note ---
Assessment/Plan Problem List: (1) Sepsis ICD Codes: A41.9 - Sepsis, unspecified organism SNOMED: 11213499 Qualifiers: Qualified Codes: A41.9 - Sepsis, unspecified organism (2) Lung cancer ICD Codes: C34.90 - Malignant neoplasm of unspecified part of unspecified bronchus or lung SNOMED: 881762308 Qualifiers: Qualified Codes: C34.91 - Malignant neoplasm of unspecified part of right bronchus or lung (3) Pneumonia ICD Codes: J18.9 - Pneumonia, unspecified organism SNOMED: 565998025 Qualifiers: Qualified Codes: J18.1 - Lobar pneumonia, unspecified organism Status: progressing Assessment/Plan pt wanted to leave today and i explained at bedside that she is not stable for dc and needs more days of iv abx before dc she wants to go to see [place] [facility] [place] her soon as id clears for dc i will dc her severe leukocytosis lung cancer s/p chemo and xrt recently Subjective ROS Limited/Unobtainable: Yes Allergies: Coded Allergies: No Known Allergies (Unverified , 09/02/18) Objective Last 24 Hour Vital Signs Date Time Temp Pulse Resp B/P (MAP) Pulse Ox O2 Delivery O2 Flow Rate FiO2 09/03/18 09:00 Nasal Cannula 4.0 09/03/18 08:00 96.7 114 18 112/63 (79) 98 09/03/18 07:54 115 18 Nasal Cannula 4.0 36 09/03/18 07:23 114 09/03/18 04:02 97.9 112 18 100/66 (77) 98 09/03/18 04:00 110 09/03/18 00:00 98.2 125 18 111/73 (86) 97 09/03/18 00:00 122 09/02/18 21:00 Nasal Cannula 4.0 09/02/18 20:00 130 20 99 Nasal Cannula 4.0 36 09/02/18 20:00 98.7 130 19 123/74 (90) 96 09/02/18 20:00 139 09/02/18 19:50 21 09/02/18 19:50 135 25 94 Nasal Cannula 4.0 36 09/02/18 17:02 Nasal Cannula 4.0 09/02/18 16:34 98.6 154 26 154/88 99 Nasal Cannula 4.0 21 09/02/18 15:42 143 26 Nasal Cannula 4.0 09/02/18 14:07 98.6 154 28 154/88 99 Nasal Cannula 4.0 09/02/18 12:53 98.6 09/02/18 12:05 136 28 99 Room Air 21 09/02/18 11:46 130 25 92 Room Air 21 09/02/18 11:46 21 09/02/18 11:46 130 25 Room Air 21 09/02/18 11:34 98.6 154 34 154/88 92 Room Air Intake and Output 09/02/18 09/03/18 18:59 06:59 # Voids 1 Laboratory Tests 09/02/18 12:00: White Blood Count 34.8*H, Red Blood Count 4.07L, Hemoglobin 12.3, Hematocrit 37.8, Mean Corpuscular Volume 93, Mean Corpuscular Hemoglobin 30.2, Mean Corpuscular Hemoglobin Concent 32.5, Red Cell Distribution Width 18.4H, Platelet Count 415, Mean Platelet Volume 5.5L, Neutrophils (%) (Auto) , Lymphocytes (%) (Auto) , Monocytes (%) (Auto) , Eosinophils (%) (Auto) , Basophils (%) (Auto) , Differential Total Cells Counted 100, Neutrophils % ( Manual) 90H, Lymphocytes % (Manual) 2L, Monocytes % (Manual) 2, Eosinophils % ( Manual) 0, Basophils % (Manual) 0, Band Neutrophils 6, Platelet Estimate Adequate, Platelet Morphology Normal, Anisocytosis 1+, Prothrombin Time 10.8, Prothromb Time International Ratio 1.0, Activated Partial Thromboplast Time 33, Sodium Level 135L, Potassium Level 4.6, Chloride Level 95L, Carbon Dioxide Level 23, Anion Gap 17H, Blood Urea Nitrogen 18, Creatinine 1.5H, Estimat Glomerular Filtration Rate 42.5, Glucose Level 131H, Calcium Level 11.0H, Total Bilirubin 1.0, Aspartate Amino Transf (AST/SGOT) 25, Alanine Aminotransferase ( ALT/SGPT) 20, Alkaline Phosphatase 101, Total Creatine Kinase 78, Troponin I 0.000, Pro-B-Type Natriuretic Peptide 1718H, Total Protein 10.2H, Albumin 3.7, Globulin 6.5, Albumin/Globulin Ratio 0.6L 09/02/18 12:15: Lactic Acid Level 3.40H 12/30/18 15:40: Lactic Acid Level 2.60H 09/02/18 16:00: Urine Color Yellow, Urine Appearance Slightly cloudy, Urine pH 5, Urine Specific [place] 1.010, Urine Protein 3+H, Urine Glucose (UA) Negative, Urine Ketones 1+H, Urine Blood 2+H, Urine Nitrite Negative, Urine Bilirubin Negative, Urine Urobilinogen Normal, Urine Leukocyte Esterase Negative, Urine RBC 2-4H, Urine WBC 0, Urine Squamous Epithelial Cells Few, Urine Amorphous Sediment FewH , Urine Bacteria Few 09/02/18 22:00: Urine Legionella Antigen [Pending] Height (Feet): 5 Height (Inches): 6.00 Weight (Pounds): 113 Neck: supple Cardiovascular: normal rate Respiratory/Chest: lungs clear Monse Davis MD Sep 03, 2018 11:23
--- NOTE | 2018-09-03 11:45 | Cardiology Progress Note ---
Assessment/Plan Assessment/Plan The patient is seen ad examined, full consult note is dictated. Objective Last 24 Hour Vital Signs Date Time Temp Pulse Resp B/P (MAP) Pulse Ox O2 Delivery O2 Flow Rate FiO2 09/03/18 09:00 Nasal Cannula 4.0 09/03/18 08:00 96.7 114 18 112/63 (79) 98 09/03/18 07:54 115 18 Nasal Cannula 4.0 36 09/03/18 07:23 114 09/03/18 04:02 97.9 112 18 100/66 (77) 98 09/03/18 04:00 110 09/03/18 00:00 98.2 125 18 111/73 (86) 97 09/03/18 00:00 122 09/02/18 21:00 Nasal Cannula 4.0 09/02/18 20:00 130 20 99 Nasal Cannula 4.0 36 09/02/18 20:00 98.7 130 19 123/74 (90) 96 09/02/18 20:00 139 09/02/18 19:50 21 09/02/18 19:50 135 25 94 Nasal Cannula 4.0 36 09/02/18 17:02 Nasal Cannula 4.0 09/02/18 16:34 98.6 154 26 154/88 99 Nasal Cannula 4.0 21 09/02/18 15:42 143 26 Nasal Cannula 4.0 21 09/02/18 14:07 98.6 154 28 154/88 99 Nasal Cannula 4.0 09/02/18 12:53 98.6 09/02/18 12:05 136 28 99 Room Air 21 09/02/18 11:46 130 25 92 Room Air 21 09/02/18 11:46 21 09/02/18 11:46 130 25 Room Air 21 Intake and Output 09/02/18 09/03/18 18:59 06:59 # Voids 1 Laboratory Tests Test 09/02/18 12:00 09/02/18 12:15 09/02/18 15:40 09/02/18 16:00 White Blood Count 34.8 K/UL (4.8-10.8) *H Red Blood Count 4.07 M/UL (4.20-5.40) L Hemoglobin 12.3 G/DL (12.0-16.0) Hematocrit 37.8 % (37.0-47.0) Mean Corpuscular Volume 93 FL (80-99) Mean Corpuscular Hemoglobin 30.2 PG (27.0-31.0) Mean Corpuscular Hemoglobin Concent 32.5 G/DL (32.0-36.0) Red Cell Distribution Width 18.4 % (11.6-14.8) H Platelet Count 415 K/UL (150-450) Mean Platelet Volume 5.5 FL (6.5-10.1) L Neutrophils (%) (Auto) % (45.0-75.0) Lymphocytes (%) (Auto) % (20.0-45.0) Monocytes (%) (Auto) % (1.0-10.0) Eosinophils (%) (Auto) % (0.0-3.0) Basophils (%) (Auto) % (0.0-2.0) Differential Total Cells Counted 100 Neutrophils % (Manual) 90 % (45-75) H Lymphocytes % (Manual) 2 % (20-45) L Monocytes % (Manual) 2 % (1-10) Eosinophils % (Manual) 0 % (0-3) Basophils % (Manual) 0 % (0-2) Band Neutrophils 6 % (0-8) Platelet Estimate Adequate Platelet Morphology Normal Anisocytosis 1+ Prothrombin Time 10.8 SEC (9.30-11.50) Prothromb Time International Ratio 1.0 (0.9-1.1) Activated Partial Thromboplast Time 33 SEC (23-33) Sodium Level 135 MMOL/L (136-145) L Potassium Level 4.6 MMOL/L (3.5-5.1) Chloride Level 95 MMOL/L (98-107) L Carbon Dioxide Level 23 MMOL/L (21-32) Anion Gap 17 mmol/L (5-15) H Blood Urea Nitrogen 18 mg/dL (7-18) Creatinine 1.5 MG/DL (0.55-1.30) H Estimat Glomerular Filtration Rate 42.5 mL/min (>60) Glucose Level 131 MG/DL (74-106) H Calcium Level 11.0 MG/DL (8.5-10.1) H Total Bilirubin 1.0 MG/DL (0.2-1.0) Aspartate Amino Transf (AST/SGOT) 25 U/L (15-37) Alanine Aminotransferase (ALT/SGPT) 20 U/L (12-78) Alkaline Phosphatase 101 U/L (46-116) Total Creatine Kinase 78 U/L (26-308) Troponin I 0.000 ng/mL (0.000-0.056) Pro-B-Type Natriuretic Peptide 1718 pg/mL (0-125) H Total Protein 10.2 G/DL (6.4-8.2) H Albumin 3.7 G/DL (3.4-5.0) Globulin 6.5 g/dL Albumin/Globulin Ratio 0.6 (1.0-2.7) L Lactic Acid Level 3.40 mmol/L (0.4-2.0) H 2.60 mmol/L (0.66-2.22) H Urine Color Yellow Urine Appearance Slightly cloudy Urine pH 5 (4.5-8.0) Urine Specific [place] 1.010 (1.005-1.035) Urine Protein 3+ (NEGATIVE) H Urine Glucose (UA) Negative (NEGATIVE) Urine Ketones 1+ (NEGATIVE) H Urine Blood 2+ (NEGATIVE) H Urine Nitrite Negative (NEGATIVE) Urine Bilirubin Negative (NEGATIVE) Urine Urobilinogen Normal MG/DL (0.0-1.0) Urine Leukocyte Esterase Negative (NEGATIVE) Urine RBC 2-4 /HPF (0 - 2) H Urine WBC 0 /HPF (0 - 2) Urine Squamous Epithelial Cells Few /LPF (NONE/OCC) Urine Amorphous Sediment Few /LPF (NONE) H Urine Bacteria Few /HPF (NONE) Test 09/02/18 22:00 Urine Legionella Antigen Pending Microbiology Date/Time Source Procedure Growth Status 09/02/18 11:58 Nasal Nares Influenza Types A,B Antigen (ANTHONY) - Final Complete Ryan Fernandes MD Sep 03, 2018 11:45
[2018-09-03 12:00] VITALS: BP 145/50
--- NOTE | 2018-09-03 12:06 | NUR ---
NURSE NOTES: Laboratory called to report the patient BC to be positive for gram positive cocci in one bottle. Dr. Ahn on the floor and verbally made aware of the blood culture result. No new orders at this time.
[2018-09-03] MEDS ORDERED: Vancomycin 750mg/NS 250ml IVPB SCH (13:00)
--- NOTE | 2018-09-03 13:14 | NUR ---
CASE MANAGEMENT:REVIEW 09/03/18 SI: SEPSIS. PNEUMONIA LUNG CANCER 96.6 124 18 145/50 98% ON 4L/NC IS: IV VANCOMYCIN Q24 IV ZOSYN Q8HRS IVF@80/HR LEVAQUIN PO QD : TELEMETRY STATUS DCP: FROM HOME
[2018-09-03] MEDS: D5NS 1,000 ML IV SCH (13:24)
--- NOTE | 2018-09-03 14:36 | NUR ---
RD ASSESSMENT & RECOMMENDATIONS SEE CARE ACTIVITY FOR COMPLETE ASSESSMENT DAILY ESTIMATED NEEDS: Needs based on cancer, underweight 51.8kg 30-35 kcals/kg 0292-5459 total kcals 1-2 g protein/kg 52-104 g total protein 25-30 mL/kg 3640-7649 total fluid mLs NUTRITION DIAGNOSIS: Increased kcal and protein needs r/t weight loss, recent cancer txt as evidenced by pt w/ lung Ca and recent chemo / radiation txt, current BMI underweight per guidelines, reports 20# wt loss x5 mo, 15% change, severe. CURRENT DIET: Regular PO DIET RECOMMENDATIONS: Regular/ neutropenic / 5 small meals daily ADDITIONAL RECOMMENDATIONS: 1) Obtain a STANDING WEIGHT 2) Add ENSURE 1 bottle daily 3) Monitor lytes/ BG 4) Monitor PO intake and tolerance to diet
--- NOTE | 2018-09-03 14:50 | Consultation ---
Consult Note Consult Note asked to eval for renal failure and hypercalcemia Patient presents with shortness of breath and chest pain which has been worsening over the last 2-3 days. She also feels weak. People around her are ill at this time. She's also receiving chemotherapy for lung cancer. Pain rated 9/10, pressure and somewhat pleuritic. Denies fever or chills. Recent weight loss with poor appetite. She has generalized weakness. No NVD, dysuria, abdominal pain, calf pain, edema, headache, rashes. Denies depression to me, though sad at of Jade. Apparently the cancer involves her R lung. No Known Allergies (Unverified , 09/02/18) Past Surgical History: hysterectomy at home with daughter - Jade Now: No : 3 Para: 3 Hx Cancer: Yes - Right lung interviewed- cat states that all her MDs are in [facility] . Assessment/Plan Renal failure- Hypercalcemia lung cancer recent chemo Rx sepsis / pneumonia hydrate monitor ca and phos and renal parameters avoid nephrotoxics patient refused lab draw today continue per consultants Issac Lovell MD Sep 03, 2018 14:50
--- NOTE | 2018-09-03 15:30 | Consultation ---
DATE OF CONSULTATION: 09/03/2018 PAIN MANAGEMENT CONSULTATION CONSULTING PHYSICIAN: Kamaljit Nation M.D. REFERRING PHYSICIAN: Monse Davis M.D. PHYSICIAN [employer] OPERATOR: [place] Saini CHIEF COMPLAINT: Generalized body pain. HISTORY OF PRESENT ILLNESS: This is a 63-year-old female who is being seen on the telemetry floor of [facility] for initial pain management consultation. The patient was admitted under the care of Dr. Davis complaining of chest pain, generalized body pain and weakness due to a history of lung cancer, receiving chemotherapy. She is very weak, describing the pain as a sharp pain in her chest, found to have pneumonia and started on antibiotics. Due to the severity of her pain was started on morphine 2 mg IV every 4 hours as needed for severe pain. The patient at this time is comfort, reporting that the pain has diminished with morphine and we were consulted so the patient would have adequate pain control while here in the hospital. PAST MEDICAL HISTORY: Lung cancer, GERD. PAST SURGICAL HISTORY: Hysterectomy. SOCIAL HISTORY: Has a history of smoking. ALLERGIES: No known drug allergies. MEDICATIONS: Inpatient is Colace, Levaquin, morphine, Zofran, Tylenol, albuterol . REVIEW OF SYSTEMS: Denies rash, fever, chills, sweating, dizziness, drowsiness, blurred vision, sore throat, or change in her weight. No nausea, vomiting, diarrhea, or blood in the stool or urine. No bowel or bladder incontinence. No dysuria. She is complaining of generalized body pain. PHYSICAL EXAMINATION: GENERAL: Alert, awake, and oriented x3. VITAL SIGNS: Blood pressure 112/63, heart rate is 114, oxygen saturation 98%, respiratory rate 18, temperature 96.7 degrees Fahrenheit. HEENT: PERRLA. NECK: Range of motion is full in all directions. No tenderness to paracervical muscles. No adenopathy. LUNGS: Decreased breath sounds bilaterally. HEART: Regular. ABDOMEN: Benign. BACK: Range of motion is full in flexion and extension. EXTREMITIES: Upper and lower extremity range of motion is decreased due to the patient's condition. No cyanosis. No clubbing. Sensory is intact. Reflexes are not obtainable. No adenopathy. ASSESSMENT AND PLAN: This is a 63-year-old female with lung cancer and intractable pain. The patient will be continued on morphine 2 mg IV every 4 hours needed for severe pain. The patient was discussed with Dr. Nation and concurred. We will follow the patient. Thank you very much for the courtesy of this consultation. Kamaljit Nation M.D. BETTIE Saini DR: Karyn JOB#: [id number] CC: SAMIRA
[2018-09-03 15:39] VITALS: BP 120/76
--- NOTE | 2018-09-03 16:00 | Consultation ---
DATE OF CONSULTATION: 09/03/2018 CARDIOLOGY CONSULTATION CONSULTING PHYSICIAN: Ryan Lane M.D. REFERRING PHYSICIAN: Monse Davis M.D. REASON FOR CONSULTATION: Tachycardia. HISTORY OF PRESENT ILLNESS: The patient is a 62-year-old lady with history of lung cancer, who has been receiving chemotherapy at [facility], presented to the emergency room with shortness of breath and chest pain for the last 2 to 3 days. Pain was 9/10 and was mostly pleuritic. The patient also has generalized weakness. The patient was admitted and a Cardiology consultation was consulted for further evaluation and management. In the emergency room, the patient was tachycardic with heart rate as high as 154 beats per minute. REVIEW OF SYSTEMS: Review of systems was negative other than what was mentioned in history of present illness. PAST MEDICAL HISTORY: Lung cancer, status post chemotherapy. FAMILY HISTORY: Noncontributory. SOCIAL HISTORY: She lives at home. Does not smoke or drink alcohol. PHYSICAL EXAMINATION: VITAL SIGNS: Blood pressure is 112/63, pulse 114, respirations 20, and temperature 96.7. HEAD AND NECK: Showed no JVD. LUNGS: Decreased breath sounds. CARDIOVASCULAR: Regular S1 and S2 with no gallop or tachycardia. ABDOMEN: Soft. EXTREMITIES: No pitting edema. DIAGNOSTIC DATA: EKG shows sinus tachycardia at rate of 150 beats per minute. LABORATORY DATA: Labs show white count of 34.8, hemoglobin 12.4, hematocrit 37.8, and platelet count 415. Sodium 134, potassium 4.6, BUN of 18, creatinine 1.5. Lactic acid 3.4. Troponin is negative. ASSESSMENT AND PLAN: 1. Chest pain. First troponin is negative. EKG is nonischemic, likely due to underlying lung cancer. We will get an echocardiogram for further evaluation and management. 2. Sepsis. White count 56121, likely cause of the patient's sinus tachycardia. The patient will be on IV antibiotic per Infectious Disease. 3. Lung cancer. Pain management per Zaki Do. Oncology evaluation is pending. Thank you very much, , for allowing me to participate in the care of this patient. Please do not hesitate to contact me for any questions regarding my evaluation. Sincerely, Ryan Lane M.D. DR: Esme JOB#: [id number] CC:
--- NOTE | 2018-09-03 18:10 | NUR ---
NURSE NOTES: RN went to the patient's room to administer a medication. Patient complained that her IV was burning. I assessed the IV site and the IV site did not display any redness or that it is swollen. I offered to remove the IV and start a new IV. The patient refused. She said she did not want to go through having a new IV started.
--- NOTE | 2018-09-03 18:45 | Consultation ---
DATE OF CONSULTATION: 09/03/2018 INFECTIOUS DISEASE CONSULTATION CONSULTING PHYSICIAN: Keron Ahn M.D. PRIMARY ATTENDING PHYSICIAN: Monse Davis M.D. REASON FOR CONSULTATION: Sepsis, pneumonia. HISTORY OF PRESENT ILLNESS: This is a 63-year-old female admitted yesterday from home because of shortness of breath, chest pain, weakness, poor appetite, weight loss. She has history of lung cancer, on chemotherapy. Last chemotherapy was on August 10. Recently, she thinks she becomes dehydrated. Blood culture at the time of admission is becoming positive for gram-positive cocci. PAST MEDICAL HISTORY: Lung cancer, on chemotherapy and radiation. She has history of smoking. ALLERGIES: No known drug allergies. MEDICATIONS: Getting Colace, Levaquin, morphine, Zosyn, Zofran, Tylenol, albuterol, ipratropium. SOCIAL HISTORY: Past history of smoking, quit 5 months ago. No alcohol or drug abuse. She has grown up children. . REVIEW OF SYSTEMS: She has 20 pounds' weight loss recently. No fever or shortness of breath. Chest pain that is becoming better today. No nausea. No vomiting. Poor appetite. No problem passing urine. PHYSICAL EXAMINATION: VITAL SIGNS: Temperature 96.7, pulse 114, blood pressure 112/63. Pulse at the time of admission was 154. GENERAL APPEARANCE: Seems to be cachectic. HEAD AND NECK: She has hair loss. pink conjunctivae. HEART: Tachycardic. LUNGS: She has diffuse sounds bilaterally. ABDOMEN: Soft, nontender. EXTREMITIES: She has no edema. Peripheral line. NEUROLOGIC: Awake, alert, oriented x3. LABORATORY AND DIAGNOSTIC DATA: WBC 34.8, hemoglobin 12.3, hematocrit 37.8, and platelet is 415,000. Lactic acid at the time of admission was 3.4, then decreased to 2.6. Sodium 135, potassium 4.6, chloride 95, bicarbonate 23, BUN 18, creatinine 1.5. UA, wbc was zero. The patient underwent a CT angiogram, did not show pulmonary emboli, but showed right paratracheal mass or adenopathy with size of 3.2 x 3.9 x 7 cm, has consolidation of left upper lung consistent with pneumonia, enlarged thyroid with multiple nodules. Blood culture, gram-positive cocci. Influenza A and B test was negative. IMPRESSION: Sepsis with tachycardia and leukocytosis. The patient seems to have pneumonia, has bacteremia with gram-positive cocci, right-sided lung cancer, lactic acidosis, dehydration, and elevated creatinine. RECOMMENDATION: We will continue with Levaquin and Zosyn. We will add IV vancomycin. We will follow up the cultures and narrow antibiotic. At the end of my exam, I thank Dr. Davis for involving me in the care of this patient. Keron Ahn M.D. DR: Sriram JOB#: [id number] CC: SAMIRA
[2018-09-03] MEDS ORDERED: Norco 5mg/325mg tab ORAL PRN (19:30)
--- NOTE | 2018-09-03 19:32 | NUR ---
HAND-OFF: Report given to NALDO Dougherty.
--- NOTE | 2018-09-03 19:48 | NUR ---
NURSE NOTES: Patient received from NALDO Villasenor. Patient AOx4, very unhappy at this time. Complaining regarding tele box for monitoring HR, pulled it out. Refused to have it reattached. Patient requesting Ibuprofen, spoke to Dr. Do. No order given d/t risks involved. Explained patient but patient refused to listen and verbalized "my sister will pick me up and I am leaving. I am going to [facility] instead." Md Dr. Davis aware since AM as verbalized by AM nurse and will sign AMA once ready to leave. At this time, patient still on bed awake, on nasal cannula 2L saturating at 95%. No SOB noted. Call light within reach. Bed brakes engaged.
[2018-09-03 20:00] VITALS: BP 146/86
--- NOTE | 2018-09-03 20:16 | NUR ---
NURSE NOTES: Notified tele tech regarding tele box and HR monitoring refusal. Per Dr. Fernandes, patient has been cleared since AM.
--- NOTE | 2018-09-03 21:01 | NUR ---
NURSE NOTES: Patient's sister came and visited patient tonight and RN and charge nurse have explained regarding ibuprofen risk at this time, patient and sister arguing regarding this. Patient is very uncooperative and does not want to listen to the sister. She verbalizes "I am staying for tonight and will leave in AM." Patient refused to have new IV done for upcoming IV medications. Current IV is still in place patent and intact but patient complaining of burning and does not want to continue IV medication tonight. Charge nurse aware.
--- NOTE | 2018-09-03 21:15 | Consultation ---
DATE OF CONSULTATION: 09/03/2018 CARDIOLOGY CONSULTATION CONSULTING PHYSICIAN: Ryan Fernandes M.D. REFERRING PHYSICIAN: Monse Davis M.D. REASON FOR CONSULTATION: Management of tachycardia and chest pain. HISTORY OF PRESENT ILLNESS: The patient is a very unfortunate 63-year-old female, who presented to the hospital with shortness of breath and pleuritic chest pain that has been going on for about two to three days. The patient has history of right lung cancer, recently underwent chemoradiation. She states that she has not been eating right, has loss of appetite. Her stomach is strong and she in fact had one episode of syncope right after the first course of chemotherapy. She has lost a great deal of weight as a result. At the time of arrival to the hospital, blood pressure was 154/88, heart rate was 154. A 12-lead electrocardiogram was significant for sinus tachycardia at a rate of [address] and T-wave abnormalities. The patient was admitted to telemetry for further evaluation and management of pleuritic chest pain as well as tachycardia. Cardiology consultation was made at request of Dr. Davis to address those issues. PAST MEDICAL HISTORY: Right lung cancer, status post chemoradiation. PAST SURGICAL HISTORY: Hysterectomy. SOCIAL HISTORY: Ex-smoker as well as history of drug use in the past. Currently denies any tobacco, alcohol, or illicit drug use. She lives at home with daughter. . REVIEW OF SYSTEMS: A 12-system review done and is essentially negative except what was mentioned in history of present illness. ALLERGIES: No known drug allergies. MEDICATIONS: List of medications at home, none. PHYSICAL EXAMINATION: VITAL SIGNS: Blood pressure was 154/88, pulse 154, respirations 34, and temperature 98.2 degrees Fahrenheit. O2 saturation 98% on room air. GENERAL: The patient is a cachectic, somewhat anxious 63-year-old lady, who is in no apparent respiratory distress. Alert and oriented x4. HEENT: Atraumatic and normocephalic. Anicteric. Pupils are equal, round, and reactive to light and accommodation. Extraocular muscles are intact. NECK: JVP less than 5 cm. No carotid bruit. Carotid upstrokes 2+ bilaterally. CARDIOVASCULAR: Normal S1 and S2. Tachycardic. No murmurs, gallops, or rubs. LUNGS: Diminished breath sounds in both lungs. There is no E to A changes throughout the lungs. ABDOMEN: Soft, nontender, and nondistended. No hepatosplenomegaly. Positive bowel sounds. EXTREMITIES: No evidence of edema, clubbing, or cyanosis. LABORATORY FINDINGS: WBC is 34.8, hemoglobin 12.3, hematocrit 38.7, and platelet count 415,000. There is left shift with 90% neutrophils and 6% bands. Chemistry - sodium is 135, potassium 4.6, chloride 95, bicarbonate 23, BUN 18, and creatinine 1.5. Glucose 131. Calcium is 11.0. Troponin I is 0. ProBNP 1718. INR is 1.0. IMAGING STUDIES: Chest x-ray shows right paratracheal mass versus adenopathy. Infiltration in the left mid and lower lung with evidence of bullous emphysema. ASSESSMENT AND PLAN: The is a very unfortunate 63-year-old female, who is seen in Cardiology consultation. 1. Pleuritic chest pain, most likely secondary to left lung pneumonia. A CT of the chest confirmed left upper lobe consolidation. Chest pain is noncardiac in origin. Troponin I is negative and no further cardiac intervention is required. 2. Sinus tachycardia could be secondary to combination of hypoxia, breathing treatment, as well as tumor burden. 3. The patient also might be hypovolemic in face of hypercalcemia and diuresis as well as poor oral intake in regards with the recent chemotherapy. 4. The patient does not require any AV kael agents at this time for tachycardia as sinus tachycardia should be corrected by removing the underlying etiology. I would like to thank for the courtesy of this consultation. Ryan Fernandes M.D. DR: SYLVESTER JOB#: [id number] CC:
--- NOTE | 2018-09-03 22:35 | NUR ---
NURSE NOTES: Patient mentioned her IV is burning and is not able to tolerate IV medications. Explained risk and benefits. Alternative relieving discomfort offered such as ice/heat packs. Patient verbalizes felt much better. Continued Iv therapy at this time.
[2018-09-04] VITALS: BP 129/79
--- NOTE | 2018-09-04 01:39 | NUR ---
NURSE NOTES: Assisted patient to ambulate and transfer to bedside commode. Patient noted weak and unable to transfer independently.
[2018-09-04] MEDS: D5NS 1,000 ML IV SCH (01:41)
[2018-09-04 04:00] VITALS: BP 139/75
--- NOTE | 2018-09-04 04:37 | NUR ---
NURSE NOTES: Patient is uncooperative, IV site discontinued per patient request and verbalizes "my mom will pick me up at 8am and I am out of here. I will be going to [facility] where I can be better of." Explained patient risk and benefits and the upcoming IV medications but patient says "I will have no more of that".
--- NOTE | 2018-09-04 04:54 | NUR ---
NURSE NOTES: Patient complaining about orders and medications given to her as well as breathing treatment that she is not having. Explained to patient that breathing treatment is as needed as ordered. She has to request and we will notify RT. Patient is very irritated and keeps on verbalizing to leave at 8am. Will endorse to the next shift.
[2018-09-04] MEDS: Albuterol/Ipratropium 3ml neb HHN PRN (04:55)
[2018-09-04] MEDS: Piperacillin/Tazobactam 3.375 GM in NS 110 ML IVPB SCH (05:47)
[2018-09-04 06:58] LABS: HEMATOCRIT 26.2 % (37.0-47.0); HEMOGLOBIN 8.8 G/DL (12.0-16.0); MEAN CORPUSCULAR VOLUME 93 FL (80-99); PLATELET COUNT 317 K/UL (150-450); RED BLOOD COUNT 2.81 M/UL (4.20-5.40); RED CELL DISTRIBUTION WIDTH 18.8 % (11.6-14.8)
[2018-09-04 07:02] LABS: PHOSPHORUS 2.8 MG/DL (2.5-4.9)
[2018-09-04 07:08] LABS: WHITE BLOOD COUNT 25.5 K/UL (4.8-10.8)
--- NOTE | 2018-09-04 07:46 | NUR ---
HAND-OFF: Report given to NALDO Reyes. Patient mentioning that she is going home today and her mom picking her up. Endorsed to AM nurse. Notified Dr. Davis regarding refusal of IV. Discontinued per patient. Tia from lab called WBC 25.5. Notified Dr. Davis.
--- NOTE | 2018-09-04 07:47 | NUR ---
NURSE NOTES: Received patient from Ladonna HITCHCOCK in bed with angry affect. Patient complained about her medication, the care she's received from being hospitalized from the outgoing nurse. Patient basically complained about everything. Encouraged her to verbalize feelings and attempted several times during hand off report in the room to calm patient down and to try to meet her needs, but patient refused and insisted on going AMA. Explained the risk and benefits of leaving AMA to the patient and she still insist. Endorsed by night nurse that she refuse to have an IV inserted. Will notiify MD. Will continue to monitor patient.
--- NOTE | 2018-09-04 08:00 | NUR ---
NURSE NOTES: Notify MD about patient wanting to leave AMA.
--- NOTE | 2018-09-04 08:35 | NUR ---
NURSE NOTES: Patient refused morning medications and stated that her mum is on the way to pick her up. Patient's daughter at bedside this time, spoke to the daughter and the patient to convince patient not to leave, patient insisted on leaving AMA.
[2018-09-04 08:44] LABS: ALANINE AMINOTRANSFERASE 15 U/L (12-78); ALBUMIN 2.4 G/DL (3.4-5.0); ALBUMIN/GLOBULIN RATIO 0.5 (1.0-2.7); ALKALINE PHOSPHATASE 79 U/L (46-116); ANION GAP 11 mmol/L (5-15); ASPARTATE AMINO TRANSFERASE 30 U/L (15-37); BILIRUBIN,TOTAL 0.5 MG/DL (0.2-1.0); BLOOD UREA NITROGEN 17 mg/dL (7-18); CALCIUM 9.7 MG/DL (8.5-10.1); CARBON DIOXIDE 24 MMOL/L (21-32); CHLORIDE 105 MMOL/L (98-107); CHOLESTEROL 157 MG/DL (< 200); CREATININE 1.3 MG/DL (0.55-1.30); HDL CHOLESTEROL 12 MG/DL (40-60); POTASSIUM 3.8 MMOL/L (3.5-5.1); SODIUM 140 MMOL/L (136-145); TRIGLYCERIDES 182 MG/DL (30-150)
--- NOTE | 2018-09-04 09:10 | NUR ---
NURSE NOTES: Patient left AMA. Notified doctors. varnish supervisor aware.
--- NOTE | 2018-09-05 11:34 | Consultation ---
Consult Note Consult Note HEMATOLOGY-ONCOLOGY CONSULTATION REFERRING PHYSICIAN: Monse Davis REASON FOR CONSULT: Paratracheal mass, leukocytosis DATE OF CONSULT: 09/04/2018 HISTORY OF PRESENT ILLNESS: The patient came in with symptoms of chest pain made worse by deep inspiration for the past two days. The patient complains of shortness of breath, wheezing, and nonproductive cough for three days. The patient has a history of lung cancer diagnosed in April 2018, just finished her chemotherapy and radiation recently. The patient is being admitted for sepsis, pneumonia, leukocytosis, tachycardia, severe dehydration, and hypercalcemia. Hematology-Oncology service consulted for the evaluation of paratracheal mass and leukocytosis. PAST MEDICAL HISTORY: Gastroesophageal reflux disease, lung cancer, and history of ovarian cancer versus benign. SOCIAL HISTORY: The patient has history of smoking and history of drug abuse. No history of alcohol abuse. FAMILY HISTORY: Noncontributory REVIEW OF SYSTEMS: HEENT: headache. RESPIRATORY: Reports shortness of breath, wheezing, and nonproductive cough for three days. CARDIOVASCULAR: Reports chest pain made worse by deep inspiration for the past three days. Denies orthopnea. ABDOMEN: Denies abdominal pain. She has heartburn. EXTREMITIES: Denies pain in the lower extremities. CENTRAL NERVOUS SYSTEM: Denies changes in speech pattern. PHYSICAL EXAMINATION: VITAL SIGNS: Have been reviewed HEENT: PERRLA. NECK: Supple. No lymphadenopathy. CHEST: Clear to auscultation. CARDIOVASCULAR: Tachycardic. GASTROINTESTINAL: Soft and nontender. No organomegaly. EXTREMITIES: No edema. Moves all four extremities. NEUROLOGIC: Sensory intact to light touch. Reflexes equal on both sides. MEDICATIONS: Current meds have been reviewed LABORATORY DATA: wbc 25.5 hgb 8.8 plt 317 IMAGING: Chest CT --> 3.2 x 3.9 x 7 cm right paratracheal mass or adenopathy ASSESSMENT AND PLAN: # Paratracheal mass. Chest CT shows a 3.2 x 3.9 x 7 cm right paratracheal mass or adenopathy # Lung cancer. Diagnosed in April 2018. --> S/P chemo and radiation therapy # Leukocytosis. Likely related to underlying infection versus reactive process. --> Peripheral has been ordered, results are pending --> Medications have been reviewed --> Imaging has been reviewed, reveals a paratracheal mass. --> Blood cultures and urine cultures prn --> has been started on abx, empiric treatment # Anemia of chronic disease (or of iron deficiency) due to underlying chronic medical issues, multifactorial --> Anemia w/u has been ordered --> No evidence of hemolysis is noted, peripheral smear has been reviewed. --> Hgb goal >7. Transfuse prn. --> Epogen or iron at this time is not particularly indicated --> bone marrow biopsy is not indicated given the other more likely causes # Severe dehydration and hypercalcemia, could be due to cancer GREATLY APPRECIATE CONSULTATION Time and date note entered does not reflect time and date of patient encounter. Delfin Grover MD Sep 05, 2018 11:34
--- NOTE | 2018-09-06 08:32 | Discharge Summary ---
Discharge Summary Discharge Summary _ DATE OF ADMISSION: 09/02/2018 DATE OF DISCHARGE: 09/04 2018 Patient signed AGAINST MEDICAL ADVICE REASON FOR ADMISSION: 63 years old female with past medical history of lung cancer , on chemo , presented to emergency department with complaints of shortness of breath and chest pain, worsening over the last 2-3 days. Patient currently on chemotherapy for lung cancer. Patient reported generalized weakness. No fever , no chills. Chest pain rated 9 out of 10 on a scale 1-10 , described as pressure-like and sometimes pleuritic. Patient reported poor appetite and weight loss secondary to chemotherapy. Patient denied abdominal pain, no nausea, no vomiting , no dysuria , no leg pain , no edema , no headache, no rashes. Vital signs revealed tachycardia -154, tachypnea -34; pulse oximetry patient was 92% on 4 L of oxygen via nasal cannula. Leukocytosis -WBC 34.8, stable hemoglobin and hematocrit. Lactic acid 3.4. Chemistry revealed BUN 18 ,creatinine 1.5. Troponin negative. EKG revealed sinus tachycardia, no acute ischemic changes . Chest x-ray revealed right paratracheal mass, infiltrate in the left mid and lower lung. Evidence of bullous emphysema. CTA of the chest revealed 3.2 x 3.9 x 7 cm right paratracheal mass or adenopathy ; dense consolidation of most of the left upper lobe consistent with pneumonia. Areas of honeycombing may reflect reticular infiltrate or could indicate an area of chronic fibrosis. Extensive COPD changes. Enlarged thyroid with multiple nodules. Patient admitted with diagnoses of sepsis ,pneumonia, lung cancer for further management. CONSULTANTS: forestry technician Dr. Fernandes cardiology resource conservationist Dr. Sutherland pulmonary Dr. Roberson ID specialist Dr. Cunha pigment and lacquer mixer Dr. Lovell sports book writer/oncologist Dr. Grover pain specialist Dr. Nation [facility] COURSE: Patient admitted to telemetry floor. Cardiology and pulmonology consults were requested. Serial troponin times were negative. Echocardiogram revealed preserved ejection fraction 55-60%. No evidence of wall motion abnormality. Patient was ruled out for acute myocardial infarction. Per cardiology chest pain was likely secondary to left lung pneumonia. Sinus tachycardia was due to sepsis, secondary to combination of hypoxia , tumor burden , dehydration and breathing treatment with beta agonist. Per forestry technician patient did not require any AV kale agents to correct tachycardia, it anticipated to be corrected by treatment of infection and removing of underlying etiology. Patient was on IV fluids. Telemetry showed sinus tachycardia, no evidence of arrhythmia, heart rate improved to 105 with IV hydration. Heart rate 105 prior to signing AMA. Clinical Manager Home Care closely followed. Supplemental oxygen provided to keep pulse oximetry above 92%. Nebulizing treatment with Atrovent only was implemented [id number] and as needed. No beta agonist given persistent sinus tachycardia. Patient started on IV antibiotics per ID specialist recommendations. Influenza screen test was negative. At the time of dictation , blood culture 1 out of 4 revealed Strep pneumonia. Bacteremia was likely due to pneumonia, Scale Attendant /oncologist followed. Lung cancer was diagnosed in April 2018. Patient status post chemotherapy and radiation. Hemoglobin and hematocrit were closely monitored with goal to keep hemoglobin above 7. Hemoglobin 8.8 hematocrit 23.2 at the time of signing AGAINST MEDICAL ADVICE. Epogen and iron at this time were not particularly indicated. Informatics Pharmacist followed. Patient had evidence of acute renal failure initially and hypercalcemia. Renal parameters and electrolytes were closely monitored. Electrolytes corrected as needed. Nephrotoxins were avoided. Patient was hydrated with IV solution. Prior to signing AGAINST MEDICAL ADVICE creatinine down to 1.3 from initial 1.5. Acute renal failure was likely precipitated by dehydration. Calcium down to 9.7. TSH was checked due to findings on the CT enlarged thyroid with multiply thyroid nodules. TSH was within normal limits. Lipid panel revealed stable LDL and total cholesterol, elevated triglycerides of 182. Patient was educated on low fat diet. Pain management was addressed as per pain specialist recommendations. Per [facility] consultant assessment patient was at high nutritional risk. Ethics Manager recommendations implemented in plan of care. Patient decided to sign AGAINST MEDICAL ADVICE. The risks and consequences of signing AGAINST MEDICAL ADVICE were discussed with patient in detail. Patient verbalized understanding, nevertheless signed AMA form and left. FINAL DIAGNOSES: Sepsis with Strep pneumonia bacteremia , likely secondary to pneumonia Left upper lobe pneumonia Right hilar lung carcinoma Pleuritic chest pain , most likely secondary to left lung pneumonia Acute renal failure-resolved Hypercalcemia-resolved Intractable pain secondary to lung cancer Sinus tachycardia likely secondary to sepsis -improved Lactic acidosis Dehydration I have been assigned to dictate discharge summary for this account. I was not involved in the patient's management. Ryann Stiles NP Sep 06, 2018 08:32
== END 2018-09-04 09:44 | disposition left against medical advice (07) | DRG 871 ==
LOC: EMR 12:06 → 2E 14:13 → EDBEDREQ 14:58
DX: A40.8 Other streptococcal sepsis (principal); J18.9 Pneumonia, unspecified organism; C34.92 Malignant neoplasm of unspecified part of left bronchus or lung; N17.9 Acute kidney failure, unspecified; E83.52 Hypercalcemia; G89.3 Neoplasm related pain (acute) (chronic); E86.0 Dehydration; K21.9 Gastro-esophageal reflux disease without esophagitis; Z87.891 Personal history of nicotine dependence; Z92.3 Personal history of irradiation; D63.8 Anemia in other chronic diseases classified elsewhere; R09.02 Hypoxemia
CPT/HCPCS: 36415; 71045; 71275; 80053; 80061; 81003; 82164; 82550; 82977; 83036; 83605; 83735; 83880; 84100; 84439; 84443; 84484; 84550; 85007; 85025; 85610; 85730; 86710; 87040; 87181; 93005; 93306; 94640; 94664; 96361; 96365; 96367; 96375; 99285; J2405; J7620